=== PATIENT | male | born 1975 | race Two or more races ===

== ENCOUNTER 2019-01-08 13:31 | Inpatient (IN) | payer SELFPAY ==
[~2019-01-08] VITALS: Ht 175.3 cm; Wt 96.1 kg
[2019-01-08 14:45] LABS: Basophils # (auto) 0.1 uL; Basophils % (auto) 0.5 % (0.0-2.0); Eosinophils # (auto) 0.1 uL; Eosinophils % (auto) 1.1 % (0.0-7.0); Hematocrit 50.9 % (41.0-53.0); Hemoglobin 16.9 g/dL (13.5-17.5); Lymphocytes # (auto) 2.3 uL; Lymphocytes % (auto) 16.4 % (10.0-50.0); Mean Corpuscular Hemoglobin 29.1 pg (28.0-32.0); Mean Corpuscular Hgb Conc. 33.3 g/dL (32.0-36.0); Mean Corpuscular Volume 87.3 fL (80.0-100.0); Monocytes # (auto) 1.2 uL; Monocytes % (auto) 8.6 % (0.0-12.0); Neutrophils # (auto) 10.3 uL; Neutrophils % (auto) 73.4 % (37.0-80.0); Nucleated Red Blood Cells % 0.1 %; Platelet Count (auto) 291 10^3/uL (140-450); Red Blood Cells 5.83 10^6/uL (4.5-5.90); Red Cell Distribution Width 14.8 % (11.8-14.3)
[2019-01-08 14:55] LABS: Albumin 3.9 g/dL (3.4-5.0); BUN/Creatinine Ratio 12.6; Calcium 8.6 mg/dL (8.5-10.1)
[2019-01-08 14:57] LABS: Bilirubin, Total 0.3 mg/dL (0.2-1.0); Total Protein 8.2 g/dL (6.4-8.2)
[2019-01-08] MEDS ORDERED: SODIUM CHLORIDE 0.9% 1,000 ML IV ONE (15:30)
[2019-01-08] MEDS ORDERED: HYDROmorphone HCL 2 MG/ML VL IV ONE (15:30)
[2019-01-08] MEDS ORDERED: SODIUM CHLORIDE 0.9% 500 ML IVB ONE (15:30)
[2019-01-08] MEDS ORDERED: PROMETHAZINE HCL 25 MG/ML 1ML IV PRN (15:30)
[2019-01-08] MEDS ORDERED: IOHEXOL 350 MG/ML 100ML IJ ONE (15:35)
[2019-01-08] MEDS ORDERED: methylPREDNISolone SOD SUCC 125 MG/2 ML VL IV ONE (17:00)
[2019-01-08] MEDS ORDERED: diphenhdrAMINE HCL 50 MG/1 ML VL IV ONE (17:00)
[2019-01-08] MEDS ORDERED: IOHEXOL 300 MG/ML 100ML BOTTLE IJ ONE (17:17)
[2019-01-08 17:30] LABS: Urine Bacteria NONE SEEN /hpf (None Seen); Urine Blood Negative /uL (Negative); Urine Specific Gravity 1.015 (1.001-1.035); Urine WBC <1 /hpf (0 - 3)
[2019-01-08] MEDS ORDERED: metroNIDAZOLE 500MG/100ML 100 ML IV ONE (18:00)
[2019-01-08] MEDS ORDERED: cefTRIAXone 1GM/50ML D5W 50 ML IV ONE ×2 (18:00→18:30)
[2019-01-08] MEDS ORDERED: NALBUPHINE HCL 10 MG/1ml INJECTION IV PRN (18:30)
[2019-01-08] MEDS ORDERED: ACETAMINOPHEN 500 MG TAB PO PRN (18:30)
[2019-01-08] MEDS: SODIUM CHLORIDE 0.9% 1,000 ML IV SCH (18:43)
[2019-01-08 19:51] VITALS: BP 120/69
[2019-01-08] MEDS: metroNIDAZOLE 500MG/100ML 100 ML IV SCH (21:59)
[2019-01-08 22:00] VITALS: BP 113/65
[2019-01-08] MEDS: traMADol HCL 50 MG TAB PO PRN (22:00)
[2019-01-08] MEDS: FAMOTIDINE 20 MG TAB PO SCH (22:05)
--- NOTE | 2019-01-09 00:49 | NUR ---
ENDORSED PATIENT CARE TO DAY SHIFT NURSE MYAH
--- NOTE | 2019-01-09 00:50 | NUR ---
Assumed care of patient from CARINA Chavez. Patient asleep. No S/S of distress or SOB. Will continue care.
[2019-01-09] MEDS: traMADol HCL 50 MG TAB PO PRN (04:19)
[2019-01-09 04:39] VITALS: BP 115/68
[2019-01-09] MEDS: SODIUM CHLORIDE 0.9% 1,000 ML IV SCH ×2 (05:06→14:24)
[2019-01-09] MEDS: metroNIDAZOLE 500MG/100ML 100 ML IV SCH ×3 (06:10→21:23)
[2019-01-09 07:04] LABS: Basophils # (auto) 0 uL; Basophils % (auto) 0.2 % (0.0-2.0); Eosinophils # (auto) 0 uL; Hematocrit 49.4 % (41.0-53.0); Hemoglobin 16.6 g/dL (13.5-17.5); Lymphocytes # (auto) 1.2 uL; Lymphocytes % (auto) 10.9 % (10.0-50.0); Mean Corpuscular Hemoglobin 29.6 pg (28.0-32.0); Mean Corpuscular Hgb Conc. 33.6 g/dL (32.0-36.0); Mean Corpuscular Volume 87.9 fL (80.0-100.0); Monocytes # (auto) 0.4 uL; Monocytes % (auto) 3.2 % (0.0-12.0); Neutrophils # (auto) 9.5 uL; Neutrophils % (auto) 85.7 % (37.0-80.0); Platelet Count (auto) 294 10^3/uL (140-450); Red Blood Cells 5.61 10^6/uL (4.5-5.90); White Blood Cell 11.1 10^3/uL (4.4-10.8)
[2019-01-09 09:04] VITALS: BP 121/73
[2019-01-09] MEDS: ENOXAPARIN SOD 40 MG/0.4 ML SYRINGE SC SCH (09:43)
[2019-01-09] MEDS: FAMOTIDINE 20 MG TAB PO SCH ×2 (09:44→21:23)
[2019-01-09] MEDS: cefTRIAXone 1GM/50ML D5W 50 ML IV SCH (09:44)
[2019-01-09] MEDS: PROMETHAZINE HCL 25 MG/ML 1ML IV PRN ×2 (10:08→21:32)
[2019-01-09] MEDS: HYDROcodone-ACET 5/325MG TAB PO PRN ×2 (11:52→21:31)
[2019-01-09 13:00] VITALS: BP 116/63
[2019-01-09] MEDS ORDERED: HYDROmorphone HCL 2 MG/ML VL IV ONE (13:00)
[2019-01-09 17:17] VITALS: BP 97/59
--- NOTE | 2019-01-09 19:30 | NUR ---
Opening shift note Patient in bed alert and oriented x 4, verbally coherent able to make needs known. Pt's respiration even and unlabored, complained of mild pain to abdomen tolerable at this time. Plan of care discussed, patient verbalized understanding. All needs attended, will continue to monitor.
--- NOTE | 2019-01-09 20:00 | NUR ---
Patient complained of 8/10 pain to abdomen. No complain of nausea or vomiting, will administer pain medication as ordered.
[2019-01-09] MEDS: HYDROmorphone HCL 2 MG/ML VL IV PRN ×2 (20:08→23:50)
[2019-01-09] MEDS: TEMAZEPAM 15 MG CAP PO PRN (21:31)
[2019-01-09 22:00] VITALS: BP 103/65
[2019-01-10] MEDS: SODIUM CHLORIDE 0.9% 1,000 ML IV SCH ×3 (01:44→20:24)
[2019-01-10] MEDS: HYDROmorphone HCL 2 MG/ML VL IV PRN ×5 (04:27→21:39)
[2019-01-10] MEDS: PROMETHAZINE HCL 25 MG/ML 1ML IV PRN ×4 (04:27→17:32)
[2019-01-10 04:51] VITALS: BP 123/80
[2019-01-10] MEDS: metroNIDAZOLE 500MG/100ML 100 ML IV SCH ×3 (05:11→21:10)
[2019-01-10] MEDS: HYDROcodone-ACET 5/325MG TAB PO PRN ×3 (05:28→23:49)
[2019-01-10 06:21] LABS: Basophils # (auto) 0 uL; Basophils % (auto) 0.3 % (0.0-2.0); Eosinophils # (auto) 0 uL; Eosinophils % (auto) 0.3 % (0.0-7.0); Hematocrit 47.8 % (41.0-53.0); Lymphocytes # (auto) 2.2 uL; Lymphocytes % (auto) 22.6 % (10.0-50.0); Mean Corpuscular Hemoglobin 29.2 pg (28.0-32.0); Mean Corpuscular Hgb Conc. 33.4 g/dL (32.0-36.0); Mean Corpuscular Volume 87.4 fL (80.0-100.0); Monocytes # (auto) 0.7 uL; Monocytes % (auto) 7.6 % (0.0-12.0); Neutrophils # (auto) 6.7 uL; Neutrophils % (auto) 69.2 % (37.0-80.0); Nucleated Red Blood Cells % 0.1 %; Platelet Count (auto) 248 10^3/uL (140-450); Red Blood Cells 5.48 10^6/uL (4.5-5.90); Red Cell Distribution Width 14.8 % (11.8-14.3); White Blood Cell 9.6 10^3/uL (4.4-10.8)
[2019-01-10 06:37] LABS: Potassium 3.7 mmol/L (3.5-5.1)
[2019-01-10 06:43] LABS: INR 1.01 (0.9-1.15); Partial Thromboplastin Time 31.6 sec (23.64-32.05)
[2019-01-10 06:44] LABS: Albumin 3.3 g/dL (3.4-5.0); BUN/Creatinine Ratio 17.3; Bilirubin, Total 0.7 mg/dL (0.2-1.0); Calcium 8.4 mg/dL (8.5-10.1); Total Protein 7.4 g/dL (6.4-8.2)
[2019-01-10 09:12] VITALS: BP 114/70
[2019-01-10] MEDS: ENOXAPARIN SOD 40 MG/0.4 ML SYRINGE SC SCH (10:08)
[2019-01-10] MEDS: cefTRIAXone 1GM/50ML D5W 50 ML IV SCH (10:09)
[2019-01-10] MEDS: FAMOTIDINE 20 MG TAB PO SCH ×2 (10:16→21:38)
[2019-01-10 13:25] VITALS: BP 119/67
[2019-01-10 17:21] VITALS: BP 124/67
[2019-01-10] MEDS: TEMAZEPAM 15 MG CAP PO PRN (21:39)
[2019-01-10 22:00] VITALS: BP 110/70
[2019-01-11] MEDS: HYDROmorphone HCL 2 MG/ML VL IV PRN ×4 (01:24→21:23)
[2019-01-11] MEDS: metroNIDAZOLE 500MG/100ML 100 ML IV SCH ×3 (05:14→21:15)
[2019-01-11 05:31] VITALS: BP 109/76
[2019-01-11] MEDS: SODIUM CHLORIDE 0.9% 1,000 ML IV SCH ×2 (06:24→13:20)
[2019-01-11 09:00] VITALS: BP 116/75
--- NOTE | 2019-01-11 10:00 | NUR ---
STATES HE WANTS A DIFFERENT PAIN MEDICATION BECAUSE THE DILAUDID MAKES HIM HAVE NIGHTMARES.
[2019-01-11] MEDS: cefTRIAXone 1GM/50ML D5W 50 ML IV SCH (10:03)
[2019-01-11] MEDS: ENOXAPARIN SOD 40 MG/0.4 ML SYRINGE SC SCH (10:03)
[2019-01-11] MEDS: FAMOTIDINE 20 MG TAB PO SCH ×2 (10:03→21:15)
[2019-01-11 13:06] VITALS: BP 120/71
[2019-01-11] MEDS ORDERED: KETOROLAC TROMETH 30 MG/ML 1ML VIAL IV PRN (13:15)
--- NOTE | 2019-01-11 13:15 | NUR ---
SR RCUMP AT BEDSIDE. DISCONTINUED DILAUDID ORDERED TORADOL.
--- NOTE | 2019-01-11 14:00 | NUR ---
GAVE TORADOL FOR ABDOMINAL PAIN
--- NOTE | 2019-01-11 15:05 | NUR ---
PATIENT STATES THE TORADOL DOES NOT WORK. I INFORMED HIM THAT I WILL CALL DR CRUMP
[2019-01-11 17:00] VITALS: BP 119/76
--- NOTE | 2019-01-11 19:30 | NUR ---
Opening Shift Note Assumed care of patient, awake and alert. No S/S of distress/SOB or pain. Instructed on POC and to call for assist PRN, will continue to monitor for changes Q1hr and PRN.
--- NOTE | 2019-01-11 20:00 | NUR ---
Patient requested for robert and juice, able to tolerate food and fluid intake.
[2019-01-11] MEDS: PROMETHAZINE HCL 25 MG/ML 1ML IV PRN (20:43)
[2019-01-11 22:00] VITALS: BP 128/86
[2019-01-12] MEDS: HYDROmorphone HCL 2 MG/ML VL IV PRN ×2 (01:35→05:53)
[2019-01-12] MEDS: SODIUM CHLORIDE 0.9% 1,000 ML IV SCH (03:33)
[2019-01-12] MEDS: HYDROcodone-ACET 5/325MG TAB PO PRN (04:22)
[2019-01-12 05:38] VITALS: BP 124/76
[2019-01-12] MEDS: metroNIDAZOLE 500MG/100ML 100 ML IV SCH (05:50)
[2019-01-12 07:24] LABS: Basophils # (auto) 0 uL; Basophils % (auto) 0.4 % (0.0-2.0); Eosinophils # (auto) 0.1 uL; Hematocrit 49.7 % (41.0-53.0); Hemoglobin 16.6 g/dL (13.5-17.5); Lymphocytes # (auto) 1.7 uL; Lymphocytes % (auto) 24.5 % (10.0-50.0); Mean Corpuscular Hemoglobin 29.4 pg (28.0-32.0); Mean Corpuscular Hgb Conc. 33.4 g/dL (32.0-36.0); Mean Corpuscular Volume 87.9 fL (80.0-100.0); Monocytes # (auto) 0.9 uL; Monocytes % (auto) 12.7 % (0.0-12.0); Neutrophils # (auto) 4.3 uL; Neutrophils % (auto) 60.4 % (37.0-80.0); Platelet Count (auto) 250 10^3/uL (140-450); Red Blood Cells 5.65 10^6/uL (4.5-5.90); Red Cell Distribution Width 14.6 % (11.8-14.3)
--- NOTE | 2019-01-12 07:30 | NUR ---
Opening Shift Note RECEIVED REPORT FROM NOC RN. Assumed care of patient, awake and alert. No S/S of distress/SOB or pain. BED IN LOWEST, LOCKED POSITION WITH SIDERAILS UP x2. Instructed on POC and to call for assist PRN, will continue to monitor for changes Q1hr and PRN.
[2019-01-12 07:36] LABS: Potassium 3.9 mmol/L (3.5-5.1)
[2019-01-12 07:41] LABS: BUN/Creatinine Ratio 11.9; Calcium 8.4 mg/dL (8.5-10.1); Magnesium 2.4 mg/dL (1.6-2.6)
[2019-01-12 08:10] VITALS: BP 123/78
[2019-01-12] MEDS: cefTRIAXone 1GM/50ML D5W 50 ML IV SCH (09:13)
[2019-01-12 10:06] VITALS: BP 123/78
[2019-01-12] MEDS: ENOXAPARIN SOD 40 MG/0.4 ML SYRINGE SC SCH (10:23)
[2019-01-12] MEDS: FAMOTIDINE 20 MG TAB PO SCH (10:23)
[2019-01-12] MEDS ORDERED: LEVO500T21 PO (11:25)
[2019-01-12] MEDS ORDERED: METR500T PO (11:25)
[2019-01-12 13:00] VITALS: BP 129/76
--- NOTE | 2019-01-12 13:56 | NUR ---
Estimated needs based on AJBW 78.6 kg-wt maintenance factors 0500-2767 kcal (22-25 kcal/kg) 63-79 g protein (0.8-1.0 g/kg) Addendum: 01/12/19 at [address] Amended: Links added.
[2019-01-12 14:54] VITALS: BP 129/76
== END 2019-01-12 15:18 | disposition home or self-care (01) | DRG 392 ==
LOC: ER 13:36 → OVERFLOW 13:37 → CENTRAL 19:51
PROVIDERS: ADMIT Internal Medicine; ATTEND Internal Medicine
DX: K57.32 Diverticulitis of large intestine without perforation or abscess without bleeding (principal); R65.10 Systemic inflammatory response syndrome (SIRS) of non-infectious origin without acute organ dysfunction; F17.210 Nicotine dependence, cigarettes, uncomplicated; E66.9 Obesity, unspecified; D72.829 Elevated white blood cell count, unspecified; F12.10 Cannabis abuse, uncomplicated; K40.20 Bilateral inguinal hernia, without obstruction or gangrene, not specified as recurrent; N20.0 Calculus of kidney; Z88.5 Allergy status to narcotic agent; Z88.2 Allergy status to sulfonamides; Z91.041 Radiographic dye allergy status; Z68.31 Body mass index [BMI] 31.0-31.9, adult; Z83.3 Family history of diabetes mellitus; Z79.899 Other long term (current) drug therapy
CPT/HCPCS: 36415; 71046; 74177; 80048; 80053; 81001; 83690; 83735; 85025; 85610; 85730; 96361; 96365; 96367; 96375; G0378; J0696; J1885; J3490

== ENCOUNTER 2019-01-15 11:06 | Emergency (ER) | payer SELFPAY ==
[~2019-01-15] VITALS: Ht 175.3 cm; Wt 90.7 kg
[~2019-01-15 11:06] MED LIST: LEVO500T21 PO; METR500T PO
[2019-01-15 13:16] LABS: Basophils # (auto) 0.1 uL; Basophils % (auto) 0.4 % (0.0-2.0); Eosinophils # (auto) 0.3 uL; Eosinophils % (auto) 2.6 % (0.0-7.0); Hematocrit 50.9 % (41.0-53.0); Hemoglobin 17.1 g/dL (13.5-17.5); Lymphocytes # (auto) 1.9 uL; Lymphocytes % (auto) 15.6 % (10.0-50.0); Mean Corpuscular Hemoglobin 29.4 pg (28.0-32.0); Mean Corpuscular Hgb Conc. 33.7 g/dL (32.0-36.0); Mean Corpuscular Volume 87.4 fL (80.0-100.0); Monocytes # (auto) 1.2 uL; Neutrophils # (auto) 8.9 uL; Neutrophils % (auto) 71.4 % (37.0-80.0); Nucleated Red Blood Cells % 0.1 %; Platelet Count (auto) 288 10^3/uL (140-450); Red Blood Cells 5.83 10^6/uL (4.5-5.90); Red Cell Distribution Width 14.9 % (11.8-14.3); White Blood Cell 12.5 10^3/uL (4.4-10.8)
[2019-01-15 13:21] LABS: Albumin 3.6 g/dL (3.4-5.0); Calcium 8.7 mg/dL (8.5-10.1); Potassium 4.4 mmol/L (3.5-5.1)
[2019-01-15 13:27] LABS: BUN/Creatinine Ratio 9.9; Bilirubin, Total 0.4 mg/dL (0.2-1.0); Total Protein 8.3 g/dL (6.4-8.2)
[2019-01-15] MEDS ORDERED: SODIUM CHLORIDE 0.9% 1,000 ML IVB ONE (16:54)
[2019-01-15] MEDS ORDERED: cefTRIAXone 1GM/50ML D5W 50 ML IV ONE (17:00)
[2019-01-15] MEDS ORDERED: IOHEXOL 300 MG/ML 100ML BOTTLE IJ ONE (17:15)
[2019-01-15] MEDS ORDERED: methylPREDNISolone SOD SUCC 125 MG/2 ML VL IV ONE (17:45)
[2019-01-15] MEDS ORDERED: diphenhdrAMINE HCL 50 MG/1 ML VL IV ONE (17:45)
[2019-01-15] MEDS ORDERED: diphenhdrAMINE HCL 50 MG/1 ML VL ONE (17:46)
[2019-01-15] MEDS ORDERED: methylPREDNISolone SOD SUCC 125 MG/2 ML VL ONE (17:47)
[2019-01-15 17:51] LABS: Magnesium 2.2 mg/dL (1.6-2.6)
[2019-01-15 18:00] VITALS: BP 127/82
[2019-01-15] MEDS ORDERED: HYDROmorphone HCL 2 MG/ML VL IV ONE (18:00)
[2019-01-15] MEDS ORDERED: PROMETHAZINE HCL 25 MG/ML 1ML IV ONE (18:00)
== END 2019-01-15 18:36 | disposition home or self-care (01) ==
LOC: ER 11:06
DX: K57.92 Diverticulitis of intestine, part unspecified, without perforation or abscess without bleeding (principal); F17.210 Nicotine dependence, cigarettes, uncomplicated; F12.10 Cannabis abuse, uncomplicated; Z88.2 Allergy status to sulfonamides; Z88.6 Allergy status to analgesic agent
CPT/HCPCS: 36415; 74177; 80053; 81002; 83690; 83735; 85025; 96365; 96375; 99284; J0696; J1170; J1200; J2550; J2930; Q9967